=== PATIENT | female | born 1975 | race Caucasian/White ===

== ENCOUNTER 2018-10-12 19:54 | Emergency (ER) | payer BC ==
[~2018-10-12] VITALS: Ht 152.4 cm; Wt 106.6 kg
[2018-10-12] MEDS ORDERED: OMEGA 3 (20:20)
[2018-10-12] MEDS ORDERED: ARMOUR THYROID (20:21)
== END 2018-10-12 23:03 | disposition home or self-care (01) ==
LOC: ER 19:54
DX: S93.492A Sprain of other ligament of left ankle, initial encounter (principal); W01.198A Fall on same level from slipping, tripping and stumbling with subsequent striking against other object, initial encounter; Y93.89 Activity, other specified; Y92.413 State road as the place of occurrence of the external cause; Y99.8 Other external cause status